=== PATIENT | female | born 1980 | race Caucasian/White ===

== ENCOUNTER 2020-10-27 06:58 | Emergency (ER) | payer OTHER ==
[~2020-10-27] VITALS: Ht 162.6 cm; Wt 63.5 kg
[2020-10-27 07:00] VITALS: Ht 162.6 cm; Wt 63.5 kg
[2020-10-27 08:40] VITALS: BP 105/71
== END 2020-10-27 08:40 | disposition home or self-care (01) ==
LOC: ED 06:58
DX: T78.40XA Allergy, unspecified, initial encounter (principal); X58.XXXA Exposure to other specified factors, initial encounter